=== PATIENT | female | born 1960 | race Caucasian/White ===

== ENCOUNTER → 2020-04-01 10:28 | Outpatient (BNVA) | payer BC, SELFPAY | PROVIDERS: Family Provider Obstetrics & Gynecology; PCP Family Medicine; Visit Provider Family Medicine | DX: E11.65 Type 2 diabetes mellitus with hyperglycemia (principal); B37.2 Candidiasis of skin and nail; K59.09 Other constipation; M67.40 Ganglion, unspecified site | CPT/HCPCS: 36416; 82962 ==

== ENCOUNTER → 2021-06-10 08:55 | Outpatient (BNVA) | payer BC, SELFPAY | PROVIDERS: Family Provider Obstetrics & Gynecology; PCP Family Medicine; Visit Provider Family Medicine | DX: N39.0 Urinary tract infection, site not specified (principal); R52 Pain, unspecified | CPT/HCPCS: 81000; 87077; 87086; 87184 ==

== ENCOUNTER → 2021-06-16 08:53 | Outpatient (BNVA) | payer BC, SELFPAY | PROVIDERS: Family Provider Obstetrics & Gynecology; PCP Family Medicine; Visit Provider Family Medicine | DX: E11.65 Type 2 diabetes mellitus with hyperglycemia (principal); N39.0 Urinary tract infection, site not specified; I10 Essential (primary) hypertension | CPT/HCPCS: 36416; 82962 ==

== ENCOUNTER → 2022-05-18 12:02 | Outpatient (BNVA) | payer OTHER, SELFPAY | PROVIDERS: Family Provider Obstetrics & Gynecology; PCP Family Medicine; Visit Provider Family Medicine | DX: I10 Essential (primary) hypertension; E11.9 Type 2 diabetes mellitus without complications | CPT/HCPCS: 80053; 83036; 84439; 84443; 85025 ==

== ENCOUNTER → 2022-06-22 15:44 | Outpatient (BNVA) | payer OTHER, SELFPAY | PROVIDERS: Family Provider Obstetrics & Gynecology; PCP Family Medicine; Visit Provider Family Medicine | DX: E11.65 Type 2 diabetes mellitus with hyperglycemia (principal) | CPT/HCPCS: 82962 ==

== ENCOUNTER → 2022-07-13 11:42 | Outpatient (BNVA) | payer OTHER, SELFPAY | PROVIDERS: Family Provider Obstetrics & Gynecology; PCP Family Medicine; Visit Provider Family Medicine | DX: E11.9 Type 2 diabetes mellitus without complications (principal) | CPT/HCPCS: 80053; 82150 ==

== ENCOUNTER → 2022-12-04 12:59 | Outpatient (BNVA) | payer OTHER, SELFPAY | PROVIDERS: Family Provider Obstetrics & Gynecology; PCP Family Medicine; Visit Provider Family Medicine | DX: Z51.11 Encounter for antineoplastic chemotherapy (principal) | CPT/HCPCS: 80053; 85025 ==

== ENCOUNTER 2023-01-08 09:00 | Oncology outpatient (recurring) (ONCR) | payer OTHER, SELFPAY ==
[2023-01-01 09:33] VITALS: BP 103/67; PULSE 86; RESP 16; TEMP 36.9; O2SAT 98
[2023-01-01] MEDS: sodium chloride 0.9% 1,000 ML 999 ML IV (09:36)
[2023-01-01 10:52] VITALS: BP 106/69; PULSE 75; RESP 17; TEMP 36.8; O2SAT 98
[2023-01-08] MEDS: sodium chloride 0.9% 1,000 ML 999 ML IV (09:47)
[2023-01-08 11:10] VITALS: BP 126/79; PULSE 80; RESP 16; TEMP 36.6; O2SAT 98
== END 2023-01-12 23:59 | disposition home or self-care (01) ==
PROVIDERS: Family Provider Obstetrics & Gynecology; PCP Family Medicine; Visit Provider Internal Medicine
DX: K86.89 Other specified diseases of pancreas (principal)
CPT/HCPCS: 96360; J1642; J7030

== ENCOUNTER 2023-02-03 14:30 | Oncology outpatient (recurring) (ONCR) | payer OTHER, SELFPAY ==
[2023-01-15] MEDS: sodium chloride 0.9% 1,000 ML 999 ML IV (09:51)
[2023-01-22] MEDS: sodium chloride 0.9% 1,000 ML 999 ML IV (09:19)
[2023-01-22 10:36] VITALS: BP 114/71; PULSE 71; TEMP 36.8; O2SAT 99
[2023-01-29] MEDS: sodium chloride 0.9% 1,000 ML 999 ML IV (09:04)
[2023-02-03] MEDS: sodium chloride 0.9% 1,000 ML 75 ML IV (14:30)
[2023-02-03 14:38] VITALS: BP 96/66; PULSE 97; RESP 18; TEMP 37.2; O2SAT 98
[2023-02-03 15:45] VITALS: BP 124/78; PULSE 78; RESP 18; TEMP 36.6; O2SAT 98
== END 2023-02-11 23:59 | disposition home or self-care (01) ==
PROVIDERS: Family Provider Obstetrics & Gynecology; PCP Family Medicine; Visit Provider Internal Medicine
DX: C25.2 Malignant neoplasm of tail of pancreas (principal); E44.0 Moderate protein-calorie malnutrition; D70.1 Agranulocytosis secondary to cancer chemotherapy
CPT/HCPCS: 96360; J1642; J7030

== ENCOUNTER 2023-03-12 09:00 | Oncology outpatient (recurring) (ONCR) | payer OTHER, SELFPAY ==
[2023-02-12] MEDS: sodium chloride 0.9% 1,000 ML 999 ML IV (09:05)
[2023-02-12 10:30] VITALS: BP 124/78; PULSE 77; RESP 16; TEMP 36.8; O2SAT 100
[2023-02-19 08:48] VITALS: BP 101/66; PULSE 91; RESP 16; TEMP 36.7; O2SAT 96
[2023-02-19] MEDS: sodium chloride 0.9% 1,000 ML 999 ML IV (08:49)
[2023-02-19 10:05] VITALS: BP 133/79; PULSE 78; RESP 16; TEMP 36.8; O2SAT 98
[2023-02-26] MEDS: sodium chloride 0.9% 1,000 ML 999 ML IV (09:06)
[2023-02-26 10:39] VITALS: BP 115/76; PULSE 80; RESP 17; TEMP 36.5; O2SAT 99
[2023-03-05 09:05] VITALS: BP 102/71; PULSE 72; RESP 16; TEMP 36.8; O2SAT 98
[2023-03-05] MEDS: sodium chloride 0.9% 1,000 ML 999 ML IV (09:05)
[2023-03-05 10:15] VITALS: BP 134/78; PULSE 73; RESP 16; TEMP 36.6; O2SAT 98
== END 2023-03-14 23:59 | disposition home or self-care (01) ==
PROVIDERS: Family Provider Obstetrics & Gynecology; PCP Family Medicine; Visit Provider Internal Medicine
DX: Z53.9 Procedure and treatment not carried out, unspecified reason
CPT/HCPCS: 96360; J1642; J7030